=== PATIENT | female | born 1950 | race African-American/Black ===

== ENCOUNTER 2023-10-24 06:04 | Day surgery (SDC) | payer MEDICARE, SELFPAY ==
[2023-10-20 12:12] VITALS: BMI 27.7
[2023-10-24] VITALS (10 sets, daily range): BP systolic 104–127; BP diastolic 69–82; BMI 27.7
[2023-10-24] MEDS: HEPARIN 5000 UNITS SC (07:21)
[2023-10-24] MEDS: NEURONTIN 300 MG PO (07:21)
[2023-10-24] MEDS: TYLENOL 1000 MG PO (07:21)
[2023-10-24] MEDS: NORMOSOL-R 1000 IV (07:32)
[2023-10-24 08:46] LABS: Turbo PTH 159.1 pg/ml (13.6-85.8)
[2023-10-24 09:33] LABS: Turbo PTH 104.6 pg/ml (13.6-85.8)
[2023-10-24 10:08] LABS: Turbo PTH 143.9 pg/ml (13.6-85.8)
[2023-10-24 10:27] LABS: Turbo PTH 63.2 pg/ml (13.6-85.8)
--- NOTE | 2023-10-24 10:57 | OR.RPT ---
Operative Report
Operative Report
Preoperative Diagnosis: �hyperparathyroidism - E210
Postoperative Diagnosis: Same
Surgeon: Alexander Yang M.D.
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
Anesthesia: GET
Estimated Blood Loss: 3 cc
Drains: None
Specimen: Right and left upper nodules, rule out parathyroid adenomas
Complications: �None
Procedure:
The patient was taken to the operating room and placed in the usual supine position. After adequate general endotracheal anesthesia was established, the patient's neck was extended, prepped, and draped in the typical sterile fashion. A 4 cm
transcervical incision was made two fingerbreadths above the sternal notch. The skin incision was made with the #15 blade, and this was taken through the skin into the subcutaneous tissue. The underlying platysma muscle was divided, and subplatysmal
flaps were created superiorly to the thyroid cartilage and inferiorly to the sternal notch. Strap muscles were identified and at the midline.
Attention was turned to the patient's right side of the neck. The right thyroid lobe was mobilized medially. During this process, the right recurrent laryngeal nerve was identified and preserved throughout the surgery. The right upper neck nodule
was identified and noted to be enlarged, excised, and sent to the pathology department, which showed a hypercellular parathyroid gland. The normal-appearing right inferior parathyroid gland was identified and preserved. The intraoperative PTH failed
to normalized after resecting the parathyroid adenoma.
Therefore, the left thyroid lobe was mobilized medially. During this process, the left recurrent laryngeal nerve was identified and preserved throughout the surgery. The left upper neck nodule was identified and noted to be enlarged, excised, and
sent to the pathology department, which showed a hypercellular parathyroid gland. The normal-appearing left inferior parathyroid gland was identified and preserved.
The intraoperative PTH levels normalized.
After obtaining adequate hemostasis, the strap muscles were reapproximated with #3-0 Vicryl in a running fashion. The platysma muscle was reapproximated with #3-0 Vicryl in an interrupted fashion, and the skin was approximated with #4-0 Monocryl in
a running subcuticular fashion. The Steri-Strips and sterile dressings were placed. The patient tolerated the procedure well. The final instrument, needle, and sponge counts were correct. The patient was extubated and transferred to the PACU.
[2023-10-24] MEDS: SUBLIMAZE 25 MCG IV ×2 (11:29→11:49)
[2023-10-24] MEDS: TYLENOL 650 MG PO (13:35)
== END 2023-10-24 14:00 | disposition home or self-care (01) ==
LOC: SDS 06:04
PROVIDERS: ATTENDING PHYSICIAN Surgery
DX: E21.0 Primary hyperparathyroidism (principal); E06.3 Autoimmune thyroiditis
CPT/HCPCS: 60500; 88305; 88307; 88332; 83970; 88331